=== PATIENT | male | born 1970 | race Two or more races ===

== ENCOUNTER 2023-11-16 11:12 | Emergency (ER) | payer MEDICAID ==
[~2023-11-16] VITALS: Ht 177.8 cm; Wt 75.0 kg
[2023-11-16 11:21] VITALS: O2SAT 98
[2023-11-16] MEDS: MAGNESIUM/ALUMINUM HYDROXIDE/SIMETHICONE 30ML UDC PO STA (11:57)
[2023-11-16] MEDS: PANTOPRAZOLE SODIUM 40 MG/VIAL IV NR (11:57)
[2023-11-16] MEDS: ONDANSETRON HCL 4MG/2ML INJ IV NR (11:57)
[2023-11-16] MEDS: MORPHINE SULFATE 4 MG/ML INJ (FOR IV/IM USE) IV ONE (11:58)
[2023-11-16] MEDS ORDERED: NALOXONE HCL 0.4MG/ML VIAL IV PRN (12:00)
[2023-11-16 12:07] LABS: BASOPHILS % 1.2 % (0.0-2.0); EOSINOPHILS % 2.4 % (0.0-5.0); HEMATOCRIT. 40.5 % (42.0-52.0); HEMOGLOBIN. 14.1 g/dL (14.0-18.0); LYMPHOCYTES % 13.2 % (20.0-50.0); MEAN CORPUSCULAR HEMOGLOBIN 33.6 pg (28.0-32.0); MEAN CORPUSCULAR HGB CONC 34.8 g/dL (31.0-37.0); MEAN CORPUSCULAR VOLUME 96.6 fL (80.0-94.0); MEAN PLATELET VOLUME 8.2 fl (7.4-10.4); MONOCYTES % 7.6 % (2.0-8.0); NEUTROPHILS % 75.6 % (40.0-76.0); PLATELET 224 x1000/uL (130-400); RED BLOOD CELL COUNT 4.19 mill/uL (4.7-6.1); WHITE BLOOD COUNT 7.7 x1000/uL (4.5-11.0)
[2023-11-16] MEDS: MORPHINE SULFATE 2 MG/ML INJ (NOT FOR IM USE) IV NR (12:07)
[2023-11-16 12:18] LABS: CALCIUM 9.5 mg/dL (8.7-10.4)
[2023-11-16 12:37] LABS: CREATININE 10.5 mg/dL (0.6-1.3)
[2023-11-16] MEDS ORDERED: OMEP40CA20 MT (13:02)
[2023-11-16] MEDS ORDERED: OXYC-100 MT (13:02)
[2023-11-16] MEDS ORDERED: ONDA-239 PO (13:02)
[2023-11-16] MEDS ORDERED: OXYCODONE HCL/ACETAMINOPHEN 5/325MG TABLET PO STA (13:04)
[2023-11-16 13:43] LABS: TROPONIN I HIGH SENSITIVITY 113 ng/L (3.0-53)
[2023-11-16] MEDS: OXYCODONE HCL/ACETAMINOPHEN 5/325MG TABLET PO NR (13:59)
[2023-11-16 14:30] VITALS: BP 195/113; PULSE 91; RESP 17; TEMP 36.66960; O2SAT 97
== END 2023-11-16 14:44 | disposition home or self-care (01) ==
LOC: ER 11:12 → EDBEDREQ 11:55 → ER 14:44
DX: K85.90 Acute pancreatitis without necrosis or infection, unspecified (principal); K29.00 Acute gastritis without bleeding; N28.9 Disorder of kidney and ureter, unspecified; I12.0 Hypertensive chronic kidney disease with stage 5 chronic kidney disease or end stage renal disease; E11.22 Type 2 diabetes mellitus with diabetic chronic kidney disease; N18.6 End stage renal disease; Z98.890 Other specified postprocedural states
CPT/HCPCS: 99284; 96365; 96375; 71045; 80048; 82150; 83690; 85025; 85610; 84484; 36415; J2405; J2470; J2270

== ENCOUNTER 2024-02-29 07:01 | Emergency (ER) | payer MEDICAID ==
[~2024-02-29 07:01] MED LIST: OMEP40CA20 MT; ONDA-239 PO; OXYC-100 MT
[2024-02-29 07:38] VITALS: PULSE 84; RESP 18; O2SAT 100
== END 2024-02-29 07:59 | disposition left against medical advice (07) ==
LOC: ER 07:01
DX: R10.9 Unspecified abdominal pain (principal); Z53.21 Procedure and treatment not carried out due to patient leaving prior to being seen by health care provider

== ENCOUNTER 2024-09-07 14:01 | Inpatient (IN) | payer MEDICAID, OTHER ==
[~2024-09-07] VITALS: Ht 175.3 cm; Wt 70.8 kg
[2024-09-07 15:54] LABS: HEMATOCRIT. 31.3 % (42.0-52.0); HEMOGLOBIN. 10.4 g/dL (14.0-18.0); MEAN PLATELET VOLUME 8.8 fl (7.4-10.4); PLATELET 181 x1000/uL (130-400); RED BLOOD CELL COUNT 3.25 mill/uL (4.7-6.1); RED CELL DISTRIBUTION WIDTH 15.3 % (11.6-14.6)
[2024-09-07] MEDS ORDERED: MORPHINE SULFATE 4 MG/ML INJ (FOR IV/IM USE) IV STA (16:03)
[2024-09-07 16:10] LABS: UREA NITROGEN BLOOD 44 mg/dL (9-23)
[2024-09-07 16:13] LABS: CREATININE 7.9 mg/dL (0.6-1.3); LYMPHOCYTES % MANUAL 10.0 % (20.0-50.0); MONOCYTES % MANUAL 7.0 % (2.0-8.0); NEUTROPHILS % MANUAL 83.0 % (45.0-75.0); PLATELET ESTIMATE NORMAL; TROPONIN I HIGH SENSITIVITY 184 ng/L (3.0-53)
[2024-09-07 16:43] LABS: ASPARTATE AMINOTRANSFERASE 24 IU/L (<34); BILIRUBIN DIRECT 0.2 mg/dL (<=3.0)
[2024-09-07 16:44] LABS: BILIRUBIN TOTAL 0.5 mg/dL (0.1-1.0); PROTEIN TOTAL 6.8 g/dL (6.0-8.3)
[2024-09-07] MEDS: MORPHINE SULFATE 4 MG/ML INJ (FOR IV/IM USE) IV SCH (17:47)
[2024-09-07] MEDS ORDERED: GUAIFENESIN 200MG/10ML SUGAR FREE UDC PO PRN (19:45)
[2024-09-07] MEDS ORDERED: ONDANSETRON HCL 4MG/2ML INJ IV PRN (19:45)
[2024-09-07] MEDS ORDERED: DEXTROSE 50% WATER 50ML SYRINGE IV PRN (19:45)
[2024-09-07] MEDS ORDERED: IPRATROPIUM/ALBUTEROL 0.5-3(2.5)MG/3ML NEB HHN PRN (19:45)
[2024-09-07] MEDS ORDERED: ACETAMINOPHEN 325MG TABLET PO PRN ×2 (19:45)
[2024-09-07] MEDS ORDERED: MAGNESIUM/ALUMINUM HYDROXIDE/SIMETHICONE 30ML UDC PO PRN (19:45)
[2024-09-07] MEDS ORDERED: DOCUSATE SODIUM 100MG CAPSULE PO PRN (19:45)
[2024-09-07] MEDS ORDERED: DIPHENHYDRAMINE 50MG/ML VIAL IV PRN (19:45)
[2024-09-07] MEDS ORDERED: LABE200T9 PO (19:53)
[2024-09-07] MEDS ORDERED: INSU100I28 SQ ×2 (19:53)
[2024-09-07] MEDS ORDERED: NIFE-72 PO (19:53)
[2024-09-07] MEDS ORDERED: CALC667C PO (19:53)
[2024-09-07] MEDS ORDERED: LABETALOL HCL 200MG TABLET PO SCH (21:00)
[2024-09-07] MEDS ORDERED: SODIUM ZIRCONIUM CYCLOSILICATE 10GM/PACKET PO NR (21:15)
[2024-09-07] MEDS: BLOOD SUGAR DIAGNOSTIC STRIP TEST SCH (21:32)
[2024-09-07] MEDS: INSULIN LISPRO 100 UNITS/ML SUBCUT NR (23:11)
[2024-09-07] MEDS: HYDROCODONE/ACETAMINOPHEN 5/325MG TABLET PO SCH (23:14)
[2024-09-07] MEDS: NIFEDIPINE XL 60MG TAB PO SCH (23:25)
[2024-09-07] MEDS: SUCRALFATE 1G TABLET PO SCH (23:25)
[2024-09-08] VITALS (7 sets, daily range): BP systolic 124–177; BP diastolic 65–102; PULSE 69–85; RESP 18–24; TEMP 36–36.6; O2SAT 96–100
[2024-09-08] MEDS: SODIUM ZIRCONIUM CYCLOSILICATE 10GM/PACKET PO NR (01:19)
[2024-09-08 07:00] LABS: BASOPHILS % 1.2 % (0.0-2.0); EOSINOPHILS % 1.3 % (0.0-5.0); HEMATOCRIT. 30.4 % (42.0-52.0); HEMOGLOBIN. 10.3 g/dL (14.0-18.0); LYMPHOCYTES % 14.7 % (20.0-50.0); MEAN PLATELET VOLUME 8.9 fl (7.4-10.4); MONOCYTES % 9.9 % (2.0-8.0); NEUTROPHILS % 72.9 % (40.0-76.0); PLATELET 144 x1000/uL (130-400); RED BLOOD CELL COUNT 3.18 mill/uL (4.7-6.1); RED CELL DISTRIBUTION WIDTH 15.5 % (11.6-14.6)
[2024-09-08 07:17] LABS: FOLIC ACID (FOLATE) SERUM 7.45 ng/mL (>5.38); T4 FREE 1.04 ng/dL (0.89-1.76); UREA NITROGEN BLOOD 52 mg/dL (9-23); VITAMIN B12 SERUM 705 pg/mL (211-911)
[2024-09-08 07:19] LABS: PHOSPHORUS 3.8 mg/dL (2.5-4.9)
[2024-09-08 07:37] LABS: CREATININE 8.8 mg/dL (0.6-1.3)
[2024-09-08 07:40] LABS: TROPONIN I HIGH SENSITIVITY 306 ng/L (3.0-53)
[2024-09-08] MEDS: FAMOTIDINE 20MG TABLET PO SCH (08:22)
[2024-09-08] MEDS: LABETALOL HCL 200MG TABLET PO SCH (08:23)
[2024-09-08] MEDS: ASPIRIN 81MG EC TABLET PO SCH (08:23)
[2024-09-08] MEDS: CALCIUM ACETATE 667MG CAPSULE PO SCH (08:23)
[2024-09-08] MEDS: INSULIN LISPRO 100 UNITS/ML SUBCUT SCH ×2 (08:30→12:30)
[2024-09-08] MEDS ORDERED: DEXTROSE 50% WATER 50ML SYRINGE IV PRN (09:15)
[2024-09-08] MEDS: ENOXAPARIN 30MG/0.3ML SYR SUBCUT SCH (10:59)
[2024-09-08] MEDS: INSULIN GLARGINE 100 UNITS/ML SUBCUT SCH (23:22)
[2024-09-09] VITALS (11 sets, daily range): BP systolic 139–184; BP diastolic 48–88; PULSE 64–71; RESP 15–20; TEMP 36–37.1; O2SAT 95–98
[2024-09-09 09:31] LABS: BASOPHILS % 0.8 % (0.0-2.0); EOSINOPHILS % 4.2 % (0.0-5.0); HEMATOCRIT. 29.6 % (42.0-52.0); HEMOGLOBIN. 10.0 g/dL (14.0-18.0); LYMPHOCYTES % 11.1 % (20.0-50.0); MEAN PLATELET VOLUME 9.1 fl (7.4-10.4); MONOCYTES % 9.4 % (2.0-8.0); NEUTROPHILS % 74.5 % (40.0-76.0); PLATELET 150 x1000/uL (130-400); RED BLOOD CELL COUNT 3.14 mill/uL (4.7-6.1); RED CELL DISTRIBUTION WIDTH 14.9 % (11.6-14.6)
[2024-09-09 09:38] LABS: UREA NITROGEN BLOOD 73.0 mg/dL (9-23)
[2024-09-09 09:59] LABS: CREATININE 10.8 mg/dL (0.6-1.3)
[2024-09-09 11:52] LABS: HEPATITIS A AB IGM NEGATIVE (Negative)
[2024-09-09 11:53] LABS: HEPATITIS B CORE AB IGM NEGATIVE (Negative); HEPATITIS C AB NON REACTIVE (Neg) (Negative)
[2024-09-10] VITALS (9 sets, daily range): BP systolic 110–190; BP diastolic 64–97; PULSE 62–72; RESP 18–20; TEMP 36.1–36.7; O2SAT 92–98
[2024-09-10 07:05] LABS: BASOPHILS % 1.2 % (0.0-2.0); EOSINOPHILS % 7.3 % (0.0-5.0); HEMATOCRIT. 29.4 % (42.0-52.0); HEMOGLOBIN. 10.0 g/dL (14.0-18.0); LYMPHOCYTES % 13.6 % (20.0-50.0); MEAN PLATELET VOLUME 9.1 fl (7.4-10.4); MONOCYTES % 11.5 % (2.0-8.0); NEUTROPHILS % 66.4 % (40.0-76.0); PLATELET 166 x1000/uL (130-400); RED BLOOD CELL COUNT 3.12 mill/uL (4.7-6.1); RED CELL DISTRIBUTION WIDTH 14.6 % (11.6-14.6)
[2024-09-10 07:22] LABS: UREA NITROGEN BLOOD 50.0 mg/dL (9-23)
[2024-09-10] MEDS: HYDRALAZINE 20MG/ML VIAL IV PRN (08:06)
[2024-09-10 08:07] LABS: CREATININE 8.9 mg/dL (0.6-1.3)
[2024-09-10] MEDS: CLONIDINE 0.1MG TABLET PO PRN (12:29)
[2024-09-10] MEDS ORDERED: SUCR1TAB PO (14:33)
[2024-09-10] MEDS ORDERED: ASPI-1406 PO (14:33)
== END 2024-09-10 16:52 | disposition home or self-care (01) | DRG 241 ==
LOC: ER 14:01 → EDBEDREQ 16:17 → ENRESERV 21:03 → 8WST 22:13
PROVIDERS: ADMIT Hospitalist; ATTEND Hospitalist
PROC: 5A1D70Z Performance of Urinary Filtration, Intermittent, Less than 6 Hours Per Day (ICD-10-PCS; principal; 2024-09-09)
DX: K29.70 Gastritis, unspecified, without bleeding (principal); E87.20 Acidosis, unspecified; I12.0 Hypertensive chronic kidney disease with stage 5 chronic kidney disease or end stage renal disease; E87.1 Hypo-osmolality and hyponatremia; E11.22 Type 2 diabetes mellitus with diabetic chronic kidney disease; D64.9 Anemia, unspecified; I21.A1 Myocardial infarction type 2; N18.6 End stage renal disease; Z59.02 Unsheltered homelessness; K40.90 Unilateral inguinal hernia, without obstruction or gangrene, not specified as recurrent; E11.65 Type 2 diabetes mellitus with hyperglycemia; E87.70 Fluid overload, unspecified; E87.5 Hyperkalemia; Z79.82 Long term (current) use of aspirin; Z79.4 Long term (current) use of insulin; Z86.73 Personal history of transient ischemic attack (TIA), and cerebral infarction without residual deficits; Z99.2 Dependence on renal dialysis
CPT/HCPCS: 36415; 71045; 74176; 80048; 80076; 82010; 82607; 82728; 82746; 82962; 83036; 83540; 83550; 83605; 83735; 84100; 84439; 84443; 84484; 85025; 86705; 86709; 87340; 90935; 93005; 96374; 97162; 97166; 99291; A4606; J0360; J1650; J1815; J2270